=== PATIENT | male | born 1985 | race Caucasian/White ===

== ENCOUNTER 2020-02-04 15:08 | Emergency (ER) | payer SELFPAY ==
[2020-02-04] MEDS ORDERED: diphenhydrAMINE 50 MG/ML SDV IVPUSH ONE (15:35)
[2020-02-04] MEDS ORDERED: Metoclopramide 10 MG/2 ML SDV IVPUSH ONE (15:35)
[2020-02-04] MEDS ORDERED: Ketorolac 30 MG/ML SDV IVPUSH ONE (15:35)
[2020-02-04] MEDS ORDERED: Sodium Chloride 0.9% 1,000 ML IV ONE (15:35)
[2020-02-04] MEDS ORDERED: Sodium Chloride 0.9% 10 ML Syringe FLUSH PRN (15:35)
--- NOTE | 2020-02-04 15:47 | EDM.PDOC ---
ED HPI GENERAL MEDICAL PROBLEM - General Chief Complaint: Headache Stated Complaint: MIGRAINE [id number] Time Seen by Provider: 02/04/20 15:27 Source of Information: Reports: Patient, RN Notes Reviewed History Limitations: Reports: No Limitations - History of Present Illness INITIAL COMMENTS - FREE TEXT/NARRATIVE: Patient is a 34-year-old male who presents to the ED for the evaluation of his migraine headache. The patient notes that he has been having this headache for about 1 week now. He notes that he does have a history of migraine headaches, this is typical for his migraines. He was evaluated by neurology for this back in [place], but this was some years ago. He was not started on any sort of triptans or other medications. He was told to treat his headaches with Tylenol or Motrin, both of which he took this last week with little relief. He states his pain is into his frontal head, and points to the right side of his head. He states this is where the headache started and has stayed. He notes that sound and light seems to make the headache worse, he is nauseated but has not vomited today, although he has had a little bit of vomiting over the past few days. He has not had any fevers or chills, cough or shortness of breath. He is not seeing any sort of spots or is not having any blurred vision or double vision. Patient notes he is not had a headache like this in roughly 2.5 years. He does not note any sort of stressors or other triggers that would have caused a migraine. 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 [No Known Home Meds] 02/04/20 [History] Past Medical History Neurological History: Reports: Migraines Social & Family History - Family History Family Medical History: Noncontributory - Tobacco Use Tobacco Use Status *Q: Never Tobacco User - Caffeine Use Caffeine Use: Reports: Soda - Recreational Drug Use Recreational Drug Use: No ED ROS GENERAL - Review of Systems Review Of Systems: Comprehensive ROS is negative, except as noted in HPI. - Physical Exam Exam: See Below Exam Limited By: No Limitations General Appearance: Alert, WD/WN, No Apparent Distress Eye Exam: Bilateral Eye: EOMI, Normal Inspection, PERRL Throat/Mouth: Normal Inspection, Normal Lips, Normal Teeth, Normal Gums, Normal Oropharynx, Normal Voice, No Airway Compromise Head Exam: Atraumatic, Normocephalic Neck: Normal Inspection Respiratory/Chest: No Respiratory Distress, Lungs Clear, Normal Breath Sounds, No Accessory Muscle Use, Chest Non-Tender Cardiovascular: Normal Peripheral Pulses, Regular Rate, Rhythm, No Murmur GI/Abdominal: Normal Bowel Sounds, Soft, Non-Tender, No Distention, No Mass Neuro Exam (Abbreviated): Alert, Oriented, Normal Cognition, No Motor/Sensory Deficits Extremities: Normal Inspection, Normal Capillary Refill Psychiatric: Normal Affect, Normal Mood Skin Exam: Warm, Dry, Intact, Normal Color, No Rash Course - Vital Signs Last Recorded V/S: Last Vital Signs Temp 98.5 F 02/04/20 15:27 Pulse 66 02/04/20 15:27 Resp 17 02/04/20 15:27 BP 116/95 H 02/04/20 15:27 Pulse Ox 99 02/04/20 15:27 - Orders/Labs/Meds Orders: Active Orders 24 hr Category Date Time Status Peripheral IV Care [RC] . DIRECTED Care 02/04/20 15:35 Ordered Sodium Chloride 0.9% [Saline Flush] Med 02/04/20 15:35 Active 10 ml FLUSH ASDIRECTED PRN Peripheral IV Insertion Adult [OM.PC] Routine Oth 02/04/20 15:35 Ordered Medication Orders Sodium Chloride (Saline Flush) 10 ml FLUSH ASDIRECTED PRN PRN Reason: Keep Vein Open Last Admin: 02/04/20 16:07 Dose: 10 ml Documented by: MARCELO Labs: Laboratory Tests 02/04/20 02/04/20 Range/Units 16:05 16:05 WBC 6.77 (4.23-9.07) K/mm3 RBC 5.24 (4.63-6.08) M/mm3 Hgb 15.7 (13.7-17.5) gm/dl Hct 46.7 (40.1-51.0) % MCV 89.1 (79.0-92.2) fl MCH 30.0 (25.7-32.2) pg MCHC 33.6 (32.2-35.5) g/dl RDW Std Deviation 44.9 H (35.1-43.9) fL Plt Count 377 H (163-337) K/mm3 MPV 9.8 (9.4-12.3) fl Neut % (Auto) 64.1 (34.0-67.9) % Lymph % (Auto) 23.6 (21.8-53.1) % Carbon % (Auto) 8.7 (5.3-12.2) % Eos % (Auto) 3.1 (0.8-7.0) Baso % (Auto) 0.4 (0.1-1.2) % Neut # (Auto) 4.33 (1.78-5.38) K/mm3 Lymph # (Auto) 1.60 (1.32-3.57) K/mm3 Carbon # (Auto) 0.59 (0.30-0.82) K/mm3 Eos # (Auto) 0.21 (0.04-0.54) K/mm3 Baso # (Auto) 0.03 (0.01-0.08) K/mm3 Sodium 142 (136-145) mEq/L Potassium 3.8 (3.5-5.1) mEq/L Chloride 103 (98-107) mEq/L Carbon Dioxide 30 (21-32) mEq/L Anion Gap 12.8 (5-15) BUN 10 (7-18) mg/dL Creatinine 1.2 (0.7-1.3) mg/dL Est Cr Clr Drug Dosing 88.38 mL/min Estimated GFR (MDRD) > 60 (>60) mL/min BUN/Creatinine Ratio 8.3 L (14-18) Glucose 89 (74-106) mg/dL Calcium 9.3 (8.5-10.1) mg/dL Total Bilirubin 1.3 H (0.2-1.0) mg/dL AST 28 (15-37) U/L ALT 96 H (16-63) U/L Alkaline Phosphatase 76 (46-116) U/L Total Protein 8.4 H (6.4-8.2) g/dl Albumin 4.0 (3.4-5.0) g/dl Globulin 4.4 gm/dL Albumin/Globulin Ratio 0.9 L (1-2) Meds: Medications Generic Name Dose Route Start Last Admin Trade Name Freq PRN Reason Stop Dose Admin Sodium Chloride 10 ml 02/04/20 15:35 02/04/20 16:07 Saline Flush FLUSH 10 ml ASDIRECTED PRN Administration Keep Vein Open Discontinued Medications Generic Name Dose Route Start Last Admin Trade Name Ilya PRN Reason Stop Dose Admin Diphenhydramine HCl 25 mg 02/04/20 15:35 02/04/20 16:07 Benadryl IVPUSH 02/04/20 15:36 25 mg ONETIME ONE Administration Hydromorphone HCl 0.5 mg 02/04/20 17:05 02/04/20 17:26 Dilaudid IVPUSH 02/04/20 17:06 0.5 mg ONETIME ONE Administration Sodium Chloride 1,000 mls @ 999 mls/hr 02/04/20 15:35 02/04/20 16:07 Normal Saline IV 02/04/20 16:35 999 mls/hr ASDIRECTED ONE Administration Ketorolac Tromethamine 30 mg 02/04/20 15:35 02/04/20 16:07 Toradol IVPUSH 02/04/20 15:36 30 mg ONETIME ONE Administration Metoclopramide HCl 10 mg 02/04/20 15:35 02/04/20 16:06 Reglan IVPUSH 02/04/20 15:36 10 mg ONETIME ONE Administration - Re-Assessments/Exams Free Text/Narrative Re-Assessment/Exam: 02/04/20 15:47 Patient presents to the ED for his migraine headache. He will get IV fluids, IV Toradol, Benadryl, Reglan for management, along with basic labs for evaluation. 02/04/20 17:07 Labs are unremarkable. Was into evaluate the patient again, and he states his headache is not much better. I have ordered 0.5 mg IV Dilaudid for further headache management. 02/04/20 17:47 Patient states he is feeling a little bit better after the 0.5 mg Dilaudid. We will discharge him home into his girlfriend's care and give him general recommendations for further management. Departure - Departure Time of Disposition: 17:47 Disposition: Home, Self-Care 01 Condition: Good Clinical Impression: Headache Qualifiers: Headache type: unspecified Headache chronicity pattern: acute headache Intractability: not intractable Qualified Code(s): R51.9 - Headache, unspecified - Discharge Information *PRESCRIPTION DRUG MONITORING PROGRAM REVIEWED*: No *COPY OF PRESCRIPTION DRUG MONITORING REPORT IN PATIENT RAFAL: No Instructions: General Headache Without Cause, [id number] Referrals: PCP,None [Primary Care Provider] - Forms: ED Department Discharge Additional Instructions: You were evaluated in the ED for your headache. You were given a combination of medications and IV fluid for management. This did seem to provide you pretty good relief of your symptoms. Recommend that you go home and rest in a quiet, darkened room. Try also to keep well hydrated. Please return to the ED if your symptoms should change or worsen. Sepsis Event Note (ED) - Evaluation Sepsis Screening Result: No Definite Risk - Focused Exam Vital Signs: Vital Signs Temp Pulse Resp BP Pulse Ox 02/04/20 15:27 98.5 F 66 17 116/95 H 99 - My Orders Last 24 Hours: My Active Orders 02/04/20 15:35 Peripheral IV Care [RC] . DIRECTED Sodium Chloride 0.9% [Saline Flush] 10 ml FLUSH ASDIRECTED PRN Peripheral IV Insertion Adult [OM.PC] Routine - Assessment/Plan Last 24 Hours: My Active Orders 02/04/20 15:35 Peripheral IV Care [RC] . DIRECTED Sodium Chloride 0.9% [Saline Flush] 10 ml FLUSH ASDIRECTED PRN Peripheral IV Insertion Adult [OM.PC] Routine
[2020-02-04] MEDS ORDERED: HYDROmorphone 0.5 MG/0.5 ML Syringe IVPUSH ONE (17:05)
== END 2020-02-04 18:10 | disposition home or self-care (01) ==
LOC: JD.ED 15:08
DX: R51.9 Headache, unspecified (principal)
CPT/HCPCS: 36415; 80053; 85025; 96374; 96375; 99283; J1170; J1200; J1885; J2765; J7030

== ENCOUNTER 2020-04-25 20:56 | Emergency (ER) | payer SELFPAY ==
[2020-04-25] MEDS ORDERED: HYDROmorphone 1 MG/ML Syringe IM ONE (21:18)
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
[2020-04-25] MEDS ORDERED: Ketorolac 60 MG/2 ML SDV IM ONE (22:12)
--- NOTE | 2020-04-26 07:53 | CR ---
Right knee: AP, oblique and lateral views of the knee were obtained. Comparison: No prior knee exam is available. Five screws are seen within the distal femur. Small calcifications are noted off the medial femur. Skin celio are present. No acute fracture, dislocation or other bony abnormality is appreciated. Impression: 1. Previous surgery. 2. No acute osseous finding is appreciated. Diagnostic code #2
== END 2020-04-25 22:35 | disposition home or self-care (01) ==
LOC: JD.ED 20:56
DX: M25.561 Pain in right knee (principal)
CPT/HCPCS: 73562; 96372; 99283; J1170; J1885

== ENCOUNTER 2020-05-11 12:51 | Emergency (ER) | payer OTHER ==
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
--- NOTE | 2020-05-12 09:47 | CR ---
Right knee: AP, lateral and sunrise patellar views of the right knee were obtained. Comparison: Previous right knee study of 04/25/20. Orthopedic screws are seen within the distal femur. These appear stable from prior exam. Soft tissue surgical clips seen within the skin on prior study have been removed. Fracture is noted within the posterior femur which appears more prominent than prior exam. This may represent reabsorption along the fracture line but bone infection cannot be completely excluded. Nothing acute is otherwise appreciated. Impression: 1. Previous surgery. 2. Fracture line within the posterior distal femur appears more prominent than on prior exam. This may relate to reabsorption as part of early healing but difficult to completely exclude a bone infection at this time. Please correlate with the patient's symptoms. Diagnostic code #3
== END 2020-05-11 14:57 | disposition home or self-care (01) ==
LOC: JD.ED 12:51
DX: S72.401D Unspecified fracture of lower end of right femur, subsequent encounter for closed fracture with routine healing (principal); X58.XXXD Exposure to other specified factors, subsequent encounter
CPT/HCPCS: 73562-26-RT; 73562-RT; 99283; 99284

== ENCOUNTER 2020-06-07 11:44 | Emergency (ER) | payer MEDICAID, OTHER ==
[2020-06-07] MEDS ORDERED: Acetaminophen/oxyCODONE 325-5 MG Tab PO ONE (14:00)
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
--- NOTE | 2020-06-08 15:39 | CR ---
Right knee: 3 views of the right knee were obtained. Comparison: Prior right knee study of 05/11/20. Old fracture is noted within the posterior medial condyle. Findings are stable from prior exam. Surgical clips are noted. Medial and lateral joint spaces are maintained in height. No acute fracture or other abnormality is appreciated. Impression: 1. Stable fracture with orthopedic hardware. 2. Nothing acute is seen. Diagnostic code #2 I agree with preliminary report from [facility], finalized on 06/07/20, 2:40 PM [employer]
== END 2020-06-07 14:58 | disposition home or self-care (01) ==
LOC: JD.ED 11:44
DX: M25.561 Pain in right knee (principal); G62.9 Polyneuropathy, unspecified
CPT/HCPCS: 36415; 73562; 85025; 86140; 99283; A9270

== ENCOUNTER 2020-06-20 19:07 | Emergency (ER) | payer MEDICAID, OTHER ==
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
== END 2020-06-20 20:10 | disposition home or self-care (01) ==
LOC: JD.ED 19:07
DX: M25.561 Pain in right knee (principal); G89.29 Other chronic pain
CPT/HCPCS: 99283

== ENCOUNTER 2020-06-22 17:48 | Emergency (ER) | payer MEDICAID, OTHER ==
[2020-06-22] MEDS ORDERED: HYDROmorphone 1 MG/ML Syringe IM ONE (19:16)
[2020-06-22] MEDS ORDERED: Promethazine 25 MG/ML SDV IM ONE (19:16)
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
== END 2020-06-22 19:50 | disposition home or self-care (01) ==
LOC: JD.ED 17:48
DX: S83.206A Unspecified tear of unspecified meniscus, current injury, right knee, initial encounter (principal); G43.909 Migraine, unspecified, not intractable, without status migrainosus; Z79.899 Other long term (current) drug therapy; Z98.890 Other specified postprocedural states; W01.0XXA Fall on same level from slipping, tripping and stumbling without subsequent striking against object, initial encounter
CPT/HCPCS: 96372; 99283; J1170; J2550; 99284

== ENCOUNTER 2020-07-25 12:18 | Emergency (ER) | payer OTHER, SELFPAY ==
[2020-07-25] MEDS: HYDROmorphone 1 MG/ML Syringe IM ONE ×2 (13:44→13:45)
[2020-07-25] MEDS: Ketorolac 60 MG/2 ML SDV IM ONE ×2 (13:44→13:45)
[2020-07-25] MEDS ORDERED: Acetaminophen/oxyCODONE 325-5 MG Tab PO ONE (14:40)
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
== END 2020-07-25 15:00 | disposition home or self-care (01) ==
LOC: JD.ED 12:18
DX: M25.561 Pain in right knee (principal); S72.91XD Unspecified fracture of right femur, subsequent encounter for closed fracture with routine healing
CPT/HCPCS: 96372; 99283; A9270; J1170; J1885

== ENCOUNTER 2020-07-30 12:37 | Emergency (ER) | payer OTHER ==
[2020-07-30] MEDS ORDERED: HYDROmorphone 1 MG/ML Syringe IM ONE (13:24)
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
== END 2020-07-30 14:05 | disposition home or self-care (01) ==
LOC: JD.ED 12:37
DX: G89.29 Other chronic pain (principal); M25.561 Pain in right knee; Z79.899 Other long term (current) drug therapy
CPT/HCPCS: 96372; 99283; J1170; 99284

== ENCOUNTER 2020-08-09 18:18 | Emergency (ER) | payer MEDICAID, OTHER ==
[2020-08-09] MEDS ORDERED: Sodium Chloride 0.9% 10 ML Syringe FLUSH PRN (18:27)
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
[2020-08-09] MEDS ORDERED: HYDROmorphone 1 MG/ML Syringe IVPUSH ONE (19:27)
--- NOTE | 2020-08-11 07:30 | CR ---
Right knee: 4 views of the right knee were obtained. Comparison: Prior right knee study of 06/07/20. Orthopedic hardware is noted within the distal femur. Prior fracture within the distal femur shows increased healing from previous exam. Medial and lateral joint compartments are maintained in height. Minimal joint effusion is seen. Impression: 1. Previous fracture within the distal femur shows evidence of healing. Stable orthopedic hardware is seen. 2. Minimal joint effusion is present. Diagnostic code #2
== END 2020-08-09 20:00 | disposition home or self-care (01) ==
LOC: JD.ED 18:18
DX: S80.01XA Contusion of right knee, initial encounter (principal); W19.XXXA Unspecified fall, initial encounter
CPT/HCPCS: 73564; 96374; 99284; J1170; 99283

== ENCOUNTER 2020-09-18 20:50 | Emergency (ER) | payer BC, MEDICAID ==
[2020-09-18] MEDS ORDERED: HYDROmorphone 1 MG/ML Syringe IM ONE (21:25)
[2020-09-18] MEDS ORDERED: Ketorolac 60 MG/2 ML SDV IM ONE (21:25)
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
--- NOTE | 2020-09-19 05:53 | CR ---
Right knee: 4 views of the right knee were obtained. Comparison: Prior right knee study of 08/09/20. Medial hemiarthroplasty is noted which is an interval change from prior study. Multiple screws are also noted within the distal femur which are stable. No acute fracture, dislocation or other bony abnormality is appreciated. Impression: 1. Prior knee surgery. 2. No acute abnormality is appreciated on right knee study. Diagnostic code #2
== END 2020-09-18 22:06 | disposition home or self-care (01) ==
LOC: JD.ED 20:50
DX: S83.91XA Sprain of unspecified site of right knee, initial encounter (principal); R60.0 Localized edema; W18.39XA Other fall on same level, initial encounter; Y92.009 Unspecified place in unspecified non-institutional (private) residence as the place of occurrence of the external cause
CPT/HCPCS: 73564; 96372; 99283; J1170; J1885

== ENCOUNTER 2020-09-20 13:31 | Emergency (ER) | payer BC, MEDICAID ==
[2020-09-20] MEDS ORDERED: Ketorolac 60 MG/2 ML SDV IM ONE (14:06)
[2020-09-20] MEDS ORDERED: HYDROmorphone 1 MG/ML Syringe IM ONE (14:06)
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
== END 2020-09-20 15:10 | disposition home or self-care (01) ==
LOC: JD.ED 13:31
DX: S83.91XA Sprain of unspecified site of right knee, initial encounter (principal); X50.1XXA Overexertion from prolonged static or awkward postures, initial encounter; Y92.009 Unspecified place in unspecified non-institutional (private) residence as the place of occurrence of the external cause
CPT/HCPCS: 96372; 99283; J1170; J1885

== ENCOUNTER 2020-09-22 13:11 | Emergency (ER) | payer BC, MEDICAID ==
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
== END 2020-09-22 14:16 | disposition home or self-care (01) ==
LOC: JD.ED 13:11
DX: S83.91XA Sprain of unspecified site of right knee, initial encounter (principal); X50.1XXA Overexertion from prolonged static or awkward postures, initial encounter
CPT/HCPCS: 99283

== ENCOUNTER 2020-09-23 14:24 | Emergency (ER) | payer BC, MEDICAID ==
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
== END 2020-09-23 15:35 | disposition home or self-care (01) ==
LOC: JD.ED 14:24
DX: M25.561 Pain in right knee (principal)
CPT/HCPCS: 99282; 99283

== ENCOUNTER 2020-09-26 04:20 | Emergency (ER) | payer BC, MEDICAID ==
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
== END 2020-09-26 05:19 | disposition home or self-care (01) ==
LOC: JD.ED 04:20
DX: M25.561 Pain in right knee (principal); G89.29 Other chronic pain
CPT/HCPCS: 99282; 99283

== ENCOUNTER 2020-10-26 14:53 | Emergency (ER) | payer BC, MEDICAID ==
[2020-10-26] MEDS ORDERED: Acetaminophen/HYDROcodone 325-5 MG Tab PO ONE (17:23)
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
--- NOTE | 2020-10-26 17:36 | CR ---
Right knee: AP, lateral and sunrise patellar views of the right knee were obtained. Comparison: Prior right knee study of 09/18/20. Medial hemiarthroplasty is noted. Screws are seen within the distal femur. These findings are stable from prior exam. Lateral joint space is maintained. Patellofemoral joint is maintained. Small joint effusion is seen. No discrete fracture or other abnormality is appreciated. Impression: 1. Prior surgery as described above. 2. Minimal joint effusion. 3. No definite acute osseous abnormality is appreciated. Diagnostic code #2
== END 2020-10-26 18:07 | disposition home or self-care (01) ==
LOC: JD.ED 14:53
DX: M25.561 Pain in right knee (principal); G89.29 Other chronic pain; Z96.651 Presence of right artificial knee joint; X50.1XXA Overexertion from prolonged static or awkward postures, initial encounter; Y93.01 Activity, walking, marching and hiking; Y92.096 Garden or yard of other non-institutional residence as the place of occurrence of the external cause
CPT/HCPCS: 73562; 99283; A9270

== ENCOUNTER 2020-10-26 22:09 | Emergency (ER) | payer BC, MEDICAID ==
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
== END 2020-10-26 22:50 | disposition home or self-care (01) ==
LOC: JD.ED 22:09
DX: G89.29 Other chronic pain (principal); M25.561 Pain in right knee
CPT/HCPCS: 99283

== ENCOUNTER 2020-11-20 16:15 | Emergency (ER) | payer BC, MEDICAID ==
[2020-11-20] MEDS ORDERED: Acetaminophen/oxyCODONE 325-5 MG Tab PO ONE (18:27)
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
--- NOTE | 2020-11-21 08:59 | CR ---
Right knee: 4 views of the right knee were obtained. Comparison: Prior right knee studies of 10/26/20 and 09/18/20. Medial hemiarthroplasty is noted. Screws are seen within the medial distal femur. Lateral joint space is maintained. Stable and minimal joint effusion is noted. No acute fracture or other abnormality is appreciated. Impression: 1. Stable surgical change as described above. Minimal stable joint effusion. 2. Nothing acute is appreciated on right knee exam. Diagnostic code #2
== END 2020-11-20 20:11 | disposition home or self-care (01) ==
LOC: JD.ED 16:15
DX: M25.561 Pain in right knee (principal); Z76.5 Malingerer [conscious simulation]
CPT/HCPCS: 73564; 99283; A9270; 99282

== ENCOUNTER 2020-11-23 13:09 | Emergency (ER) | payer MEDICAID ==
[2020-11-23] MEDS ORDERED: Acetaminophen/HYDROcodone 325-5 MG Tab PO ONE (13:29)
[2020-11-23] MEDS ORDERED: Ketorolac 60 MG/2 ML SDV IM ONE (13:30)
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
== END 2020-11-23 13:47 | disposition home or self-care (01) ==
LOC: JD.ED 13:09
DX: M25.561 Pain in right knee (principal); M79.89 Other specified soft tissue disorders
CPT/HCPCS: 96372; 99283; A9270; J1885

== ENCOUNTER 2020-11-30 15:32 | Emergency (ER) | payer MEDICAID ==
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
[2020-11-30] MEDS ORDERED: Acetaminophen 325 MG Tab PO ONE (17:20)
--- NOTE | 2020-11-30 17:28 | CR ---
Right knee: 4 views of the right knee were obtained. Comparison: Prior right knee study of 11/20/20. Medial hemiarthroplasty is seen. Components are aligned. Multiple screws are seen within the distal femur which are stable. Small joint effusion is seen. No acute fracture or other bony abnormality is appreciated. Impression: 1. Previous surgery. Minimal joint effusion. 2. No definite acute abnormality is appreciated on right knee exam. Diagnostic code #2
== END 2020-11-30 18:33 | disposition home or self-care (01) ==
LOC: JD.ED 15:32
DX: M25.561 Pain in right knee (principal); W18.39XA Other fall on same level, initial encounter; Y92.002 Bathroom of unspecified non-institutional (private) residence as the place of occurrence of the external cause
CPT/HCPCS: 73564; 99283; A9270; 99282

== ENCOUNTER 2020-12-01 12:35 | Emergency (ER) | payer MEDICAID ==
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
--- NOTE | 2020-12-01 14:48 | CR ---
Right knee: AP and lateral views of the right knee were obtained. Comparison: Previous right knee study of 11/30/20. Medial hemiarthroplasty is seen. Additional surgical screws are seen within the distal femur. Lateral joint space is maintained. No acute fracture or other abnormality is appreciated. Impression: 1. Previous surgery. 2. No acute osseous abnormality is seen. Diagnostic code #2
== END 2020-12-01 15:08 | disposition home or self-care (01) ==
LOC: JD.ED 12:35
DX: M25.561 Pain in right knee (principal); G89.29 Other chronic pain
CPT/HCPCS: 73560-26-RT; 73560-RT; 99282; 99284-25

== ENCOUNTER 2022-01-27 17:50 | Emergency (ER) | payer MEDICAID | END 2022-01-27 20:04 | disposition home or self-care (01) | LOC: JD.ED 17:50 | DX: M25.561 Pain in right knee (principal) | CPT/HCPCS: 73562-26-RT; 73562-RT; 99283 ==

== ENCOUNTER 2022-02-03 16:55 | Emergency (ER) | payer MEDICAID | END 2022-02-03 19:40 | disposition home or self-care (01) | LOC: JD.ED 16:55 | DX: M25.561 Pain in right knee (principal) | CPT/HCPCS: 99282; 99283 ==

== ENCOUNTER 2022-02-09 05:28 | Emergency (ER) | payer MEDICAID | END 2022-02-09 07:15 | disposition home or self-care (01) | LOC: JD.ED 05:28 | DX: M25.561 Pain in right knee (principal); G89.29 Other chronic pain | CPT/HCPCS: 73562-26-RT; 73562-RT; 99283 ==